=== PATIENT | male | born 1955 | race Caucasian/White ===

== ENCOUNTER 2017-03-13 13:58 | Emergency (ER) | payer BC ==
[2017-03-13 14:03] VITALS: TEMP 97.9; BMI 27.2
--- NOTE | 2017-03-13 14:07 | PDOC ---
Rapid Medical Evaluation Chief Complaint: Palpitations Time Seen by Provider: 03/13/17 14:01 Medical Evaluation: Allergies Allergy/AdvReac Type Severity Reaction Status Date / Time No Known Allergies Allergy Verified 09/22/12 09:42 03/13/17 14:02 I have performed a brief in-person evaluation of this patient. This patient presents with a chief complaint of: palpitations since last night with no chest pain, dizziness or shortness of breath Pertinenet physical exam findings: NAD lungs cta bilat Heart s1s2 I have ordered the following: EKG and labs This patient will proceed to the ED for further evaluation.
--- NOTE | 2017-03-13 14:47 | PDOC ---
History of Present Illness - History of Present Illness Initial Comments: 03/13/17 15:17 The patient is a 61 year old male, with no significant past medical history, who presents to the emergency department with chest pain since last night. Patient is an employee here at [employer] in [place]. He states that he began experiencing intermittent palpitations and lightheadedness last night. He came to work this morning and states he was running around a lot. Around 11:30 while he was having lunch, he drank his second cup of coffee and that seemed to reactivate his palpitations. He went to [facility] and they thought it was irregular so he came to the ER. He denies any cardiac history. Denies family history of cardiac disease. He denies any recent fevers, chills, headache. He denies any recent nausea, vomit, diarrhea or constipation. He denies any recent chest pain or shortness of breath. He denies any recent dysuria, frequency, urgency or hematuria. Allergies: NKA Past surgical history: None reported. Social History: Occasional EtOH use. Nonsmoker. Denies recreational drug use. Primary Care Physician: Jasbir Roberts <Sydnee Edwards - Last Filed: 03/13/17 15:16> - General History Source: Patient Exam Limitations: No Limitations <Lazaro Mueller - Last Filed: 03/13/17 16:46> - General Chief Complaint: Palpitations Stated Complaint: EMPLOYEE, PALPITATIONS Time Seen by Provider: 03/13/17 14:01 Past History <Sydnee Edwards - Last Filed: 03/13/17 15:16> - Past Medical History COPD: No - Suicide/Smoking/Psychosocial Hx Smoking Status: No Smoking History: Never smoked Number of Cigarettes Smoked Daily: 0 Information on smoking cessation initiated: No Hx Alcohol Use: No Drug/Substance Use Hx: No Substance Use Type: None <Lazaro Mueller - Last Filed: 03/13/17 16:46> - Past Medical History Allergies/Adverse Reactions: Allergies Allergy/AdvReac Type Severity Reaction Status Date / Time egg Allergy Verified 03/13/17 14:03 Home Medications: Ambulatory Orders NK [No Known Home Medication] 03/13/17 Review of Systems - Review of Systems Comments:: 03/13/17 15:17 GENERAL/CONSTITUTIONAL: No fever or chills. No weakness. HEAD, EYES, EARS, NOSE AND THROAT: No change in vision. No ear pain or discharge. No sore throat. CARDIOVASCULAR: +palpitations. No chest pain or shortness of breath. RESPIRATORY: No cough, wheezing, or hemoptysis. GASTROINTESTINAL: No nausea, vomiting, diarrhea or constipation. GENITOURINARY: No dysuria, frequency, or change in urination. MUSCULOSKELETAL: No joint or muscle swelling or pain. No neck or back pain. SKIN: No rash NEUROLOGIC:+ lightheadedness. No headache, loss of consciousness, or change in strength/sensation. ENDOCRINE: No increased thirst. No abnormal weight change. HEMATOLOGIC/LYMPHATIC: No anemia, easy bleeding, or history of blood clots. ALLERGIC/IMMUNOLOGIC: No hives or skin allergy. <Sydnee Edwards - Last Filed: 03/13/17 15:16> *Physical Exam - Vital Signs Last Vital Signs Temp Pulse Resp BP Pulse Ox 97.9 F 74 16 102/70 97 03/13/17 14:01 03/13/17 15:03 03/13/17 15:03 03/13/17 15:03 03/13/17 15:03 - Physical Exam Comments: 03/13/17 15:17 GENERAL: Awake, alert, and fully oriented, in no acute distress HEAD: No signs of trauma EYES: PERRLA, EOMI, sclera anicteric, conjunctiva clear ENT: Auricles normal inspection, hearing grossly normal, nares patent, oropharynx clear without exudates. Moist mucosa NECK: Normal ROM, supple, no lymphadenopathy, JVD, or masses LUNGS: Breath sounds equal, clear to auscultation bilaterally. No wheezes, and no crackles HEART: Regular rate and rhythm, normal S1 and S2, no murmurs, rubs or gallops ABDOMEN: Soft, nontender, normoactive bowel sounds. No guarding, no rebound. No masses EXTREMITIES: Normal range of motion, no edema. No clubbing or cyanosis. No cords, erythema, or tenderness NEUROLOGICAL: Cranial nerves II through XII grossly intact. Normal speech, normal gait SKIN: Warm, Dry, normal turgor, no rashes or lesions noted. <Sydnee Edwards - Last Filed: 03/13/17 15:16> - Vital Signs Last Vital Signs Temp Pulse Resp BP Pulse Ox 97.9 F 84 18 122/82 98 03/13/17 14:01 03/13/17 14:35 03/13/17 14:01 03/13/17 14:01 03/13/17 14:35 <Lazaro Mueller - Last Filed: 03/13/17 16:46> Heart Score/ECG Review #1 ECG reviewed & interpreted by me at: 14:05 03/13/17 14:46 NSR 77, no std/shyanne, normal axis, normal intervals, QTC 427 msec. no brugada, no HOCM, no WPW <Lazaro Mueller - Last Filed: 03/13/17 16:46> ED Treatment Course - LABORATORY CBC & Chemistry Diagram: 03/13/17 14:20 - ADDITIONAL ORDERS Additional order review: Laboratory Results 03/13/17 03/13/17 14:40 14:20 Sodium 140 Potassium 3.9 Chloride 104 Carbon Dioxide 28 Anion Gap 8 BUN 9 Creatinine 0.9 Creat Clearance w eGFR > 60 Random Glucose 90 Calcium 8.8 Phosphorus Cancelled Magnesium Cancelled Total Bilirubin 0.2 D AST 13 L ALT 33 Alkaline Phosphatase 78 Creatine Kinase 84 Troponin I < 0.02 Total Protein 7.4 Albumin 4.1 TSH Cancelled 2.41 D <Sydnee Edwards - Last Filed: 03/13/17 15:16> - LABORATORY CBC & Chemistry Diagram: 03/13/17 16:00 03/13/17 14:20 <Lazaro Mueller - Last Filed: 03/13/17 16:46> Medical Decision Making - Medical Decision Making 03/13/17 14:58 A portion of this note was documented by scribe services under my direction. I have reviewed the details of the note, within reason, and agree with the documentation with the following case summary and management plan written by me. Patient treated in the ED. Nursing notes are reviewed and incorporated into the medical decision-making. Vital signs reviewed. Peripheral IV access obtained by the nurse, laboratory studies are drawn and sent, reviewed and interpreted by myself. Vital Signs Temp Pulse Resp BP Pulse Ox 97.9 F 74 16 102/70 97 03/13/17 14:01 03/13/17 15:03 03/13/17 15:03 03/13/17 15:03 03/13/17 15:03 61-year-old male with past medical history of acid reflux presents with palpitations since yesterday. The patient reports several minutes of intermittent and rapid palpitations at resolve on its own. States that he feels occasionally lightheaded with it but denies any chest pain or shortness of breath. Denies personal or family history of cardiac disease. Stated that this occurred after taking caffeine. Patient denies symptoms at this time. EKG is reassuring done shows no acute findings. We'll obtain labs to rule out metabolic disarray such as thyroid disorder, though I tried disorder. Cardiac telemetry. We'll need to rule out findings such as SVT, sinus tach, atrial fibrillation. Less likely to be ventricle tachycardia but we'll observe. Once results return, we'll touch base with the patient's primary care physician. 03/13/17 16:44 CBC, BMP 03/13/17 16:00 03/13/17 14:20 CMP Sodium 140 mmol/L (136-145) 03/13/17 14:20 Potassium 3.9 mmol/L (3.5-5.1) 03/13/17 14:20 Chloride 104 mmol/L (98-107) 03/13/17 14:20 Carbon Dioxide 28 mmol/L (21-32) 03/13/17 14:20 Anion Gap 8 (8-16) 03/13/17 14:20 BUN 9 mg/dL (7-18) 03/13/17 14:20 Creatinine 0.9 mg/dL (0.7-1.3) 03/13/17 14:20 Creat Clearance w eGFR > 60 (>60) 03/13/17 14:20 Random Glucose 90 mg/dL (74-106) 03/13/17 14:20 Calcium 8.8 mg/dL (8.5-10.1) 03/13/17 14:20 Phosphorus Cancelled 03/13/17 14:40 Magnesium Cancelled 03/13/17 14:40 Total Bilirubin 0.2 mg/dL (0.2-1.0) D 03/13/17 14:20 AST 13 U/L (15-37) L 03/13/17 14:20 ALT 33 U/L (12-78) 03/13/17 14:20 Alkaline Phosphatase 78 U/L (45-117) 03/13/17 14:20 Creatine Kinase 84 IU/L (39-308) 03/13/17 14:20 Troponin I < 0.02 ng/ml (0.00-0.05) 03/13/17 14:20 Total Protein 7.4 g/dl (6.4-8.2) 03/13/17 14:20 Albumin 4.1 g/dl (3.4-5.0) 03/13/17 14:20 TSH Cancelled 03/13/17 14:40 03/13/17 16:45 TSH 2.41 The patient has been on the monitor and no events occurred. Patient's EKG is normal. I discussed the case with patient's primary care physician Dr. Roberts who agrees with my plan for outpatient follow-up with cardiology. He requests that we follow-up with Dr. Barron. I spoke with Dr. Eller who is agreeable to see him as an outpatient. Patient feels better like to go home.I discussed the physical exam findings, ancillary test results and final diagnoses with the patient. I answered all of the patient's questions. The patient was satisfied with the care received and felt comfortable with the discharge plan and treatment plan. The patient will call their primary care physician within 24 hours to arrange follow-up and will return to the Emergency Department with any new, persistant or worsening symptoms. <Lazaro Mueller - Last Filed: 03/13/17 16:46> *DC/Admit/Observation/Transfer - Attestations Scribe Attestion: 03/13/17 15:18 Documentation prepared by Sydnee Edwards, acting as chief medical officer for Lazaro Mueller MD. <Sydnee Edwards - Last Filed: 03/13/17 15:16> - Discharge Dispostion Admit: No <Lazaro Mueller - Last Filed: 03/13/17 16:46> Diagnosis at time of Disposition: Palpitations - Discharge Dispostion Disposition: HOME Condition at time of disposition: Good - Referrals Referrals: Jasbir Roberts MD [Primary Care Provider] - Suman Eller MD [Staff Physician] - - Patient Instructions Printed Discharge Instructions: DI for Palpitations Additional Instructions: Please follow up and make an appointment with a slide maker. Call DR. Eller's office for an appointment.
[2017-03-13 14:48] LABS: INR 0.92 (0.82-1.09); PROTHROMBIN TIME (PATIENT) 10.4 SEC (9.98-11.88)
[2017-03-13 14:50] LABS: ALBUMIN 4.1 g/dl (3.4-5.0); ANION GAP 8 (8-16); BILIRUBIN,TOTAL 0.2 mg/dL (0.2-1.0); CALCIUM 8.8 mg/dL (8.5-10.1); CO2 28 mmol/L (21-32); CPK 84 IU/L (39-308); CREATININE 0.9 mg/dL (0.7-1.3); GLUCOSE,RANDOM 90 mg/dL (74-106); SGOT/AST 13 U/L (15-37); SGPT/ALT 33 U/L (12-78); TOT PROT 7.4 g/dl (6.4-8.2)
[2017-03-13 14:51] LABS: ACTIVATED PTT 30.3 SECONDS (26.9-34.4)
[2017-03-13 14:52] LABS: ALK PHOS 78 U/L (45-117); TROPONIN I < 0.02 ng/ml (0.00-0.05)
[2017-03-13 15:03] VITALS: BP 102/70; PULSE 74
[2017-03-13 15:13] LABS: THYROID STIMULATING HORMONE 2.41 uIU/ml (0.358-3.74)
[2017-03-13 15:22] LABS: MAGNESIUM 2.3 mg/dL (1.8-2.4); PHOSPHOROUS 3.2 mg/dL (2.5-4.9)
[2017-03-13 16:09] LABS: BASO % 0.9 % (0-2.0); EOS % 1.9 % (0-4.5); MCH 32.6 pg (25.7-33.7); MCHC 34.2 g/dl (32.0-35.9); MEAN CELL VOLUME 95.5 fl (80-96); MEAN PLT VOLUME 8.7 fl (7.5-11.1); NEUT % 53.1 % (42.8-82.8); PLATELET COUNT 212 K/MM3 (134-434); RDW 12.4 % (11.9-15.9); WHITE BLOOD COUNT 6.5 K/mm3 (4.0-10.0)
--- NOTE | 2017-03-13 17:07 | EKG ---
Test Reason : Blood Pressure : / mmHG Vent. Rate : 077 BPM Atrial Rate : 077 BPM P-R Int : 116 ms QRS Dur : 090 ms QT Int : 378 ms P-R-T Axes : 044 007 015 degrees QTc Int : 427 ms NORMAL SINUS RHYTHM NORMAL ECG WHEN COMPARED WITH ECG OF 13-MAY-2011 16:30, NO SIGNIFICANT CHANGE WAS FOUND Confirmed by JOSE G MOTT MD ([id number]) on 03/13/2017 5:06:46 PM Referred By: Confirmed By:JOSE G MOTT MD
== END 2017-03-13 17:29 | disposition home or self-care (01) ==
LOC: JER 13:58
DX: R00.2 Palpitations (principal)
CPT/HCPCS: 36415; 80053; 82550; 83735; 84100; 84443; 84484; 85025; 85610; 85730; 93005; 93010; 99284-25

== ENCOUNTER 2020-07-15 09:57 | Day surgery (SDC) | payer BC ==
[2020-07-13 17:27] VITALS: BMI 28.6
[2020-07-15] MEDS ORDERED: PROPOFOL 20 ML ONE ×4 (10:43)
[2020-07-15 11:51] VITALS: TEMP 97.6
[2020-07-15 11:59] VITALS: BP 107/72; PULSE 86
== END 2020-07-15 12:15 | disposition home or self-care (01) ==
LOC: FASU 09:57
PROVIDERS: ATTEND Internal Medicine Gastroenterology
PROC: 0DJD8ZZ Inspection of Lower Intestinal Tract, Via Natural or Artificial Opening Endoscopic (ICD-10-PCS; principal; 2020-07-15 10:50)
DX: K92.1 Melena (principal); K64.1 Second degree hemorrhoids; K64.8 Other hemorrhoids; K57.30 Diverticulosis of large intestine without perforation or abscess without bleeding

== ENCOUNTER 2020-11-07 19:40 | Emergency (ER) | payer BC ==
[2020-11-07 19:53] VITALS: BP 116/78; PULSE 89; TEMP 97.8; BMI 28.4
[2020-11-07] MEDS ORDERED: DIPHTH,PERTUSS(ACELL),TET 0.5 ML DISP.SYRIN IM ONE ×2 (21:31→21:33)
== END 2020-11-07 22:16 | disposition home or self-care (01) ==
LOC: FER 19:40
PROC: 3E0234Z Introduction of Serum, Toxoid and Vaccine into Muscle, Percutaneous Approach (ICD-10-PCS; principal; 2020-11-07)
DX: S63.92XA Sprain of unspecified part of left wrist and hand, initial encounter (principal); S61.512A Laceration without foreign body of left wrist, initial encounter; S50.812A Abrasion of left forearm, initial encounter; W29.8XXA Contact with other powered hand tools and household machinery, initial encounter
CPT/HCPCS: 73130-TC-LT-FY; 90715; 99284-25

== ENCOUNTER 2021-10-06 05:59 | Day surgery (SDC) | payer BC ==
[2021-10-04 16:52] VITALS: BMI 29.6
[2021-10-06] MEDS ORDERED: LIDOCAINE HCL 2% (20ML MULTI-DOSE VIAL) ONE (07:22)
[2021-10-06] MEDS ORDERED: SUCCINYLCHOLINE CHLORIDE 200 MG/10 ML SYRINGE ONE (07:23)
[2021-10-06] MEDS ORDERED: MIDAZOLAM HCL 2 MG/2 ML SINGLE DOSE VIAL ONE (07:24)
[2021-10-06] MEDS ORDERED: PROPOFOL 20 ML ONE ×3 (07:24→08:05)
[2021-10-06 08:32] VITALS: BP 126/79; PULSE 83; TEMP 97.1
== END 2021-10-06 12:00 | disposition home or self-care (01) ==
LOC: FASU 05:59
PROVIDERS: ATTEND Orthopaedic Surgery Hand Surgery
PROC: 0LN70ZZ Release Right Hand Tendon, Open Approach (ICD-10-PCS; principal; 2021-10-06 08:01)
DX: M65.331 Trigger finger, right middle finger (principal)